=== PATIENT | male | born 1955 | race Two or more races ===

== ENCOUNTER 2020-10-08 10:39 | Inpatient (IN) | payer OTHER ==
[~2020-10-08] VITALS: Ht 175.3 cm; Wt 106.1 kg
[2020-10-08] MEDS ORDERED: FINASTERIDE1 MG PO (10:46)
[2020-10-08] MEDS ORDERED: LIPITOR40 M1 PO (10:46)
[2020-10-08] MEDS ORDERED: FOLIC ACID0.8 M1 PO (10:46)
[2020-10-08] MEDS ORDERED: OMEPRAZOLE MAGN20 MG PO (10:47)
[2020-10-08] MEDS ORDERED: HYDRALAZINE HCL10 MG PO (10:47)
[2020-10-08] MEDS ORDERED: GLIMEPIRIDE1 MG (10:47)
[2020-10-08] MEDS ORDERED: GABAPENTIN300 M2 PO (10:47)
[2020-10-08] MEDS ORDERED: GLUMETZA500 MG PO (10:48)
[2020-10-08] MEDS ORDERED: TAMS0.4C PO (10:48)
[2020-10-08] MEDS ORDERED: TOPROL XL25 M1 PO (10:48)
[2020-10-16] MEDS ORDERED: GABAPENTIN300 MG PO (13:24)
[2020-10-16] MEDS ORDERED: Neurin-Sl Tablet Sl SL (13:24)
[2020-10-16] MEDS ORDERED: GLIMEPIRIDE1 MG PO (13:24)
[2020-10-16] MEDS ORDERED: LIPITOR40 MG PO (13:24)
[2020-10-16] MEDS ORDERED: TAMS0.4C PO (13:24)
[2020-10-16] MEDS ORDERED: INTEGRA PLUS C1 EACH PO (13:24)
[2020-10-16] MEDS ORDERED: PEPCID AC20 MG PO (13:24)
[2020-10-16] MEDS ORDERED: PYRIDOXINE HCL100 MG PO (13:24)
[2020-10-16] MEDS ORDERED: METFORMIN HCL500 MG PO (13:24)
[2020-10-16] MEDS ORDERED: TOPROL XL25 M1 PO (13:24)
[2020-10-16] MEDS ORDERED: FOLIC ACID1 MG PO (13:24)
[2020-10-16] MEDS ORDERED: THIAMINE HCL100 MG PO (13:24)
[2020-10-16] MEDS ORDERED: CARAFATE1 GM PO (13:24)
== END 2020-10-16 13:43 | disposition home or self-care (01) | DRG 812 ==
LOC: ER 10:39 → MEDI 19:55
PROVIDERS: ADMIT Internal Medicine; ATTEND Internal Medicine
PROC: 30233N1 Transfusion of Nonautologous Red Blood Cells into Peripheral Vein, Percutaneous Approach (ICD-10-PCS; 2020-10-08)
PROC: BW21YZZ Computerized Tomography (CT Scan) of Abdomen and Pelvis using Other Contrast (ICD-10-PCS; 2020-10-08)
PROC: 30233N1 Transfusion of Nonautologous Red Blood Cells into Peripheral Vein, Percutaneous Approach (ICD-10-PCS; 2020-10-09)
PROC: 30233N1 Transfusion of Nonautologous Red Blood Cells into Peripheral Vein, Percutaneous Approach (ICD-10-PCS; 2020-10-09)
PROC: 30233N1 Transfusion of Nonautologous Red Blood Cells into Peripheral Vein, Percutaneous Approach (ICD-10-PCS; 2020-10-11)
PROC: 0DB68ZX Excision of Stomach, Via Natural or Artificial Opening Endoscopic, Diagnostic (ICD-10-PCS; principal; 2020-10-12)
PROC: 0DB78ZX Excision of Stomach, Pylorus, Via Natural or Artificial Opening Endoscopic, Diagnostic (ICD-10-PCS; 2020-10-12)
PROC: 30233N1 Transfusion of Nonautologous Red Blood Cells into Peripheral Vein, Percutaneous Approach (ICD-10-PCS; 2020-10-12)
PROC: 0DBP8ZX Excision of Rectum, Via Natural or Artificial Opening Endoscopic, Diagnostic (ICD-10-PCS; 2020-10-15)
PROC: 0DBN8ZX Excision of Sigmoid Colon, Via Natural or Artificial Opening Endoscopic, Diagnostic (ICD-10-PCS; 2020-10-15)
DX: D64.89 Other specified anemias (principal); K92.1 Melena; K44.9 Diaphragmatic hernia without obstruction or gangrene; K29.60 Other gastritis without bleeding; I10 Essential (primary) hypertension; K63.5 Polyp of colon; E11.40 Type 2 diabetes mellitus with diabetic neuropathy, unspecified

== ENCOUNTER 2022-04-01 06:37 | Outpatient (CLI) | payer OTHER ==
[~2022-04-01 06:37] MED LIST: CARAFATE1 GM PO; FINASTERIDE1 MG PO; FOLIC ACID0.8 M1 PO; FOLIC ACID1 MG PO; GABAPENTIN300 M2 PO; GABAPENTIN300 MG PO; GLIMEPIRIDE1 MG; GLIMEPIRIDE1 MG PO; GLUMETZA500 MG PO; HYDRALAZINE HCL10 MG PO; INTEGRA PLUS C1 EACH PO; LIPITOR40 M1 PO; LIPITOR40 MG PO; METFORMIN HCL500 MG PO; Neurin-Sl Tablet Sl SL; OMEPRAZOLE MAGN20 MG PO; PEPCID AC20 MG PO; PYRIDOXINE HCL100 MG PO; TAMS0.4C PO; THIAMINE HCL100 MG PO; TOPROL XL25 M1 PO
== END 2022-04-01 06:41 | disposition home or self-care (01) ==
LOC: LAB 06:37
PROVIDERS: ATTEND Internal Medicine Hematology & Oncology
DX: D50.8 Other iron deficiency anemias (principal); I10 Essential (primary) hypertension; R74.02 Elevation of levels of lactic acid dehydrogenase [LDH]; K76.89 Other specified diseases of liver; D63.8 Anemia in other chronic diseases classified elsewhere; D55.0 Anemia due to glucose-6-phosphate dehydrogenase [G6PD] deficiency; D51.1 Vitamin B12 deficiency anemia due to selective vitamin B12 malabsorption with proteinuria; D51.0 Vitamin B12 deficiency anemia due to intrinsic factor deficiency; E03.8 Other specified hypothyroidism; E06.3 Autoimmune thyroiditis; E11.42 Type 2 diabetes mellitus with diabetic polyneuropathy; K25.4 Chronic or unspecified gastric ulcer with hemorrhage; D51.3 Other dietary vitamin B12 deficiency anemia

== ENCOUNTER 2023-01-17 23:15 | Emergency (ER) | payer OTHER ==
[~2023-01-17] VITALS: Ht 175.3 cm; Wt 108.9 kg
[2023-01-18] MEDS ORDERED: MECLIZINE HCL25 M1 PO (04:27)
== END 2023-01-18 04:50 | disposition home or self-care (01) ==
LOC: ER 23:15
DX: R42 Dizziness and giddiness (principal); R11.2 Nausea with vomiting, unspecified; E11.9 Type 2 diabetes mellitus without complications; Z79.84 Long term (current) use of oral hypoglycemic drugs; I10 Essential (primary) hypertension

== ENCOUNTER 2023-10-08 11:03 | Outpatient (CLI) | payer OTHER ==
[~2023-10-08 11:03] MED LIST changes: +MECLIZINE HCL25 M1 PO
== END 2023-10-08 11:07 | disposition home or self-care (01) ==
LOC: SONOGRAMA 11:03
PROVIDERS: ATTEND Pathology Anatomic Pathology & Clinical Pathology
DX: E04.1 Nontoxic single thyroid nodule (principal); D44.0 Neoplasm of uncertain behavior of thyroid gland

== ENCOUNTER 2024-11-17 11:39 | Outpatient (CLI) | payer OTHER | END 2024-11-17 11:42 | disposition home or self-care (01) | LOC: SONOGRAMA 11:39 | PROVIDERS: ATTEND Pathology Anatomic Pathology & Clinical Pathology | DX: D44.0 Neoplasm of uncertain behavior of thyroid gland (principal); E04.1 Nontoxic single thyroid nodule ==